=== PATIENT | male | born 1985 | race Caucasian/White ===

== ENCOUNTER 2017-02-15 19:58 | Emergency (ER) | payer OTHER ==
[2017-02-15 20:07] VITALS: RESP 16; TEMP 98.1; O2SAT 95
--- NOTE | 2017-02-15 21:38 | EDPHY ---
H & P Stated Complaint: back pain after squats at gym this morning, felt a pop Time Seen by Provider: 02/15/17 21:22 HPI/ROS: CHIEF COMPLAINT: Low back pain post exercise HISTORY OF PRESENT ILLNESS: 31-year-old male arrives via private vehicle cleaned acute paraspinous left lumbar pain after he was performing squats and felt immediate pain in the paraspinous left lumbar region, felt a pop in this area. No radiculopathy. No incontinence no retention. He has reproducible pain with range of motion. No direct trauma or fall. He was seen at urgent care earlier today given prescription for Flexeril which has only moderate his pain slightly. No fever no chills. No flu-like symptoms PRIMARY CARE PROVIDER: REVIEW OF SYSTEMS: A ten point review of systems was performed and is negative with the exception of the items mentioned in the HPI PAST MEDICAL & SURGICAL HISTORY: no prior history of chronic back pain SOCIAL HISTORY: no IV drug use PHYSICAL EXAM (Prior to examination, patient consented to physical exam, hands were washed and my usual and customary physical exam procedures followed) 1) GENERAL: Well-developed, well-nourished, alert and oriented. Appears nontoxic. 2) HEAD: Normocephalic, atraumatic 3) HEENT: Pupils equal, round, reactive to light bilaterally. Sclera anicteric. 4) NECK: Full range of motion, no meningeal signs. 5) LUNGS: Clear auscultation bilaterally, no wheezes, no rhonchi, no retractions. 6) HEART: Regular rate and rhythm, no murmur, no heave, no gallop. 7) ABDOMEN: No guarding, no rebound, no focal tenderness, 8) MUSCULOSKELETAL: Moving all extremities, no focal areas of tenderness, no obvious trauma. No peripheral edema or discoloration. 9) BACK: tender to palpation paraspinous muscle. No CVA tenderness, no midline vertebral tenderness, no fluctuance, no step-off, no obvious trauma, no visual or palpable abnormality. Patella, Achilles reflexes intact to bilateral strength 5/5 10) SKIN: No rash, no petechiae. DIFFERENTIAL DIAGNOSIS: In no particular order, including but not limited to, fracture, sprain/strain, cauda equina, spinal infectious etiology. MEDICAL DECISION MAKING I have examined this patient. I informed him that I have a lower index of suspicion for cauda equina, epidural abscess, epidural hematoma, lumbar myositis , diskitis, as the patient is neurologically intact in the lower extremities, has patella and Achilles reflexes intact and equal bilaterally, has no neurologic deficits, no incontinence, no retention, no midline pain, no fluctuance, afebrile, no flulike symptoms. Pain may be secondary to muscular strain, may be secondary to discogenic etiology. At this point I do not identify definitive indication for emergent MRI, however patient may necessitate this on an outpatient basis. I have recommended follow up with Neurosurgery and have provided him with this referral information. I am starting the patient on Medrol Dosepak, Percocet, lidocaine patches. Patient given acute back pain precautions. Patient verbalizes understanding of discharge instructions. I believe them be competent decision-makers. All questions and concerns have been addressed by me. Ample opportunity for questions have been provided . The patient understands that this diagnosis is provisional and can never be 100% accurate. Usual and customary warnings were given concerning the clinical impression and all the patient's questions were answered. The patient was instructed to return to the emergency department should her symptoms worsen or return, or develop any new symptoms, otherwise to followup as directed in discharge instructions.Care of patient under supervision of secondary supervising physician Dr Lowery - Personal History Current Tetanus/Diphtheria Vaccine: No - Medical/Surgical History Hx Asthma: No Hx Chronic Respiratory Disease: No Hx Diabetes: No Hx Cardiac Disease: No Hx Renal Disease: No Hx Cirrhosis: No Hx Alcoholism: No Hx HIV/AIDS: No Hx Splenectomy or Spleen Trauma: No Other PMH: PSHx: something removed from outside of neck when he was very young. PMHx: denies - Social History Smoking Status: Never smoked Constitutional: Initial Vital Signs Temperature (C) 36.7 C 02/15/17 20:04 Heart Rate 73 02/15/17 20:04 Respiratory Rate 16 02/15/17 20:04 Blood Pressure 144/82 H 02/15/17 20:04 O2 Sat (%) 95 02/15/17 20:04 O2 Delivery Mode Room Air Allergies/Adverse Reactions: No Known Allergies Allergy (Unverified 02/15/17 20:04) Home Medications: Medication Instructions Recorded Lidocaine 5% [Lidoderm 5% Patch 1 ea TD BID #30 patch 02/15/17 (*)] methylPREDNISolone [Medrol Dose 4 mg PO DAILY #1 ea 02/15/17 Edmundo] oxyCODONE/APAP 5/325 [Percocet 1 tab PO Q6 #10 tab 02/15/17 5/325] Departure - Departure Disposition: Home, Routine, Self-Care Clinical Impression: Acute bilateral low back pain Qualifiers: Sciatica presence: without sciatica Qualified Code(s): M54.5 - Low back pain Condition: Good Instructions: Acute Low Back Pain (ED), Oxycodone/Acetaminophen (By mouth) Additional Instructions: Seek medical attention if you develop new or worsening pain, if you develop bladder or bowel dysfunction, numbness around your perineum, foot drop, or any other symptoms that concern you. Referrals: Yakov Childs MD [Medical Doctor] - 2-3 days, call for appt. (Dr. Childs and his colleagues are spine specialists.) Prescriptions: Lidocaine 5% [Lidoderm 5% Patch (*)] 1 ea TD BID #30 patch methylPREDNISolone [Medrol Dose Edmundo] 4 mg PO DAILY #1 ea oxyCODONE/APAP 5/325 [Percocet 5/325] 1 tab PO Q6 #10 tab
[2017-02-15 22:10] VITALS: BP 121/78; PULSE 72
== END 2017-02-15 22:09 | disposition home or self-care (01) ==
DX: M54.5 Low back pain (principal)